=== PATIENT | female | born 1995 ===

== ENCOUNTER 2016-10-31 21:41 | Emergency (ER) | payer SELFPAY ==
[2016-10-31 21:54] VITALS: O2SAT 100
--- NOTE | 2016-10-31 22:28 | ED PDOC ---
Upper Extremity Pain/Injury Time Seen by Provider: 10/31/16 22:04 Chief Complaint (Nursing): Finger,Hand,&Wrist Chief Complaint (Provider): right hand pain History Per: Patient, Family History/Exam Limitations: no limitations Onset/Duration Of Symptoms: Days (1) Current Symptoms Are (Timing): Still Present Additional History Per: Patient Additional Complaint(s): 21 y/o right hand dominant female presents with right hand pain x 1 day. Patient states she punched a wall. Denies numbness/weakness right upper extremity. No medication taken for pain relief thus far. Past Medical History Reviewed: Historical Data, Nursing Documentation, Vital Signs Vital Signs: Last Vital Signs Temp 98.0 F 10/31/16 21:52 Pulse 91 H 10/31/16 21:52 Resp 16 10/31/16 21:52 BP 110/62 10/31/16 21:52 Pulse Ox 100 10/31/16 21:52 - Medical History PMH: No Chronic Diseases - Surgical History Surgical History: - Family History Family History: States: Unknown Family Hx - Home Medications Home Medications: Ambulatory Orders Medication Instructions Recorded Acetaminophen with Codeine 1 tab PO Q6 PRN #10 tab 10/31/16 [Tylenol with Codeine No. 3 300 mg-30 mg] - Allergies Allergies/Adverse Reactions: Allergies Allergy/AdvReac Type Severity Reaction Status Date / Time No Known Allergies Allergy Verified 10/31/16 21:51 Review of Systems ROS Statement: Except As Marked, All Systems Reviewed And Found Negative Musculoskeletal: Positive for: Hand Pain (right) Physical Exam - Reviewed Nursing Documentation Reviewed: Yes Vital Signs Reviewed: Yes - Physical Exam Appears: Positive for: Well, Non-toxic, No Acute Distress Head Exam: Positive for: ATRAUMATIC, NORMAL INSPECTION, NORMOCEPHALIC Skin: Positive for: Normal Color Cardiovascular/Chest: Positive for: Regular Rate, Rhythm Respiratory: Positive for: Normal Breath Sounds Pulses-Radial (L): 2+ Pulses-Radial (R): 2+ Extremity: Positive for: Swelling (dorsal right hand distal 4-5 metacarapals with + ecchymosis; tender to touch. Distal NV, motor intact) Neurologic/Psych: Positive for: Alert, Oriented. Negative for: Motor/Sensory Deficits - ECG O2 Sat by Pulse Oximetry: 100 - Other Rad xray right hand X-Ray: Viewed By Nh X-Ray Interpretation: +5th metacarpal head/neck fx - Progress ED Course And Treament: ibuprofen, xray Patient placed in right ulnar gutter splint by automotive brake technician; checked by literary writer. Cap refill <2 sec, distal digits NV intact post splint. Spling applied. Patient educated on findings, discharged with rx tylenol with codeine. Patient educated on risk of narcotic abuse/dependence/overdose; advised to take as needed for severe pain only. Otherwise ibuprofen Q6 PRN moderate pain. Advised ice, elevate. Follow up [facility]/hand specialist. Return to ED for worsening/concerning symptoms. Disposition - Clinical Impression Clinical Impression: Hand fracture, right - Patient ED Disposition Is Patient to be Admitted: No Counseled Patient/Family Regarding: Studies Performed, Diagnosis, Need For Followup, Rx Given - Disposition Referrals: [facility] [Outside] Mamadou Jones MD [Staff Provider] - Disposition: Routine/Home Disposition Time: 23:54 Condition: STABLE Prescriptions: Acetaminophen with Codeine [Tylenol with Codeine No. 3 300 mg-30 mg] 1 tab PO Q6 PRN #10 tab PRN Reason: Pain, Severe (8-10) Instructions: Boxer Fracture (ED), Splint Care (ED) Print Language: ITALIAN
[2016-11-01 00:43] VITALS: BP 104/59; PULSE 82; RESP 20; TEMP 98.7
--- NOTE | 2016-11-01 09:41 | RAD ---
PROCEDURE: Right Hand Radiographs. HISTORY: punched wall COMPARISON: None. FINDINGS: BONES: There is a comminuted fracture of the neck of the 5th metacarpal with ventral angulation JOINTS: Normal. No osteoarthritic changes. SOFT TISSUES: Normal. OTHER FINDINGS: None. IMPRESSION: There is a comminuted fracture of the neck of the 5th metacarpal with ventral angulation
== END 2016-11-01 01:04 | disposition home or self-care (01) ==
LOC: H.ER 21:41
DX: S62.91XA Unspecified fracture of right hand, initial encounter for closed fracture (principal); W22.8XXA Striking against or struck by other objects, initial encounter; Y92.89 Other specified places as the place of occurrence of the external cause

== ENCOUNTER 2016-11-03 21:10 | Emergency (ER) | payer SELFPAY ==
[2016-11-03 21:35] VITALS: BP 112/48; PULSE 66; RESP 16; TEMP 98.2; O2SAT 99
--- NOTE | 2016-11-03 21:59 | ED PDOC ---
Upper Extremity Pain/Injury Time Seen by Provider: 11/03/16 21:37 Chief Complaint (Nursing): Upper Extremity Problem/Injury Chief Complaint (Provider): Upper Extremity Problem/Injury History Per: Patient History/Exam Limitations: language barrier (metals sales representative used: [id number]) Onset/Duration Of Symptoms: Days (x2) Additional Complaint(s): Urbano More, 21 year old female presents to the ED after experiencing an injury to her right hand 2 days prior to arrival. The patient states she was told she has a fracture to her right hand which was then splinted. The patient was then given outpatient follow-up instructions, prompting her to visit the emergency room today as she is uncertain whether she should go to the clinic or wait until she goes back to [place] where she lives. The patient also removed the splint as it was uncomfortable. She reports the pain has improved. She denies new trauma, numbness, or tingling. Past Medical History Reviewed: Historical Data, Nursing Documentation, Vital Signs Vital Signs: Last Vital Signs Temp 98.2 F 11/03/16 21:33 Pulse 66 11/03/16 21:33 Resp 16 11/03/16 21:33 BP 112/48 L 11/03/16 21:33 Pulse Ox 99 11/03/16 21:33 - Medical History PMH: No Chronic Diseases - Surgical History Surgical History: - Family History Family History: States: Unknown Family Hx - Home Medications Home Medications: Ambulatory Orders Medication Instructions Recorded Acetaminophen with Codeine 1 tab PO Q6 PRN #10 tab 10/31/16 [Tylenol with Codeine No. 3 300 mg-30 mg] - Allergies Allergies/Adverse Reactions: Allergies Allergy/AdvReac Type Severity Reaction Status Date / Time No Known Allergies Allergy Verified 10/31/16 21:51 Review of Systems ROS Statement: Except As Marked, All Systems Reviewed And Found Negative Musculoskeletal: Positive for: Hand Pain (right hand injury) Neurological: Negative for: Numbness (and no tingling) Physical Exam - Reviewed Nursing Documentation Reviewed: Yes Vital Signs Reviewed: Yes - Physical Exam Appears: Positive for: Well, Non-toxic, No Acute Distress Head Exam: Positive for: ATRAUMATIC, NORMAL INSPECTION, NORMOCEPHALIC Skin: Positive for: Normal Color, Warm. Negative for: Rash Pulses-Radial (L): 2+ Pulses-Radial (R): 2+ Extremity: Positive for: Tenderness (minimal tenderness on dorsal right hand), Capillary Refill (< 2 seconds of R hand), Swelling (minimal non-circumferential swelling on dorsal right hand) Neurologic/Psych: Positive for: Alert, Oriented. Negative for: Motor/Sensory Deficits (of R hand) - ECG O2 Sat by Pulse Oximetry: 99 (RA) Pulse Ox Interpretation: Normal - Progress ED Course And Treament: Pt. was encouraged to see hand specialist CHRISSY but prefers to wait until she goes to [place]. Informed of risks of malunion of fx. These risks and importance of prompt hand specialist f/u and importance of keeping splint on were discussed using catalogue compiler #[id number]. Hand x-ray: minimally displaced distal 5th MCP fx unchanged from previous hand x -ray. Medical Decision Making Medical Decision Making: Impression: Right hand injury Plan: * Hand Right 3 Views [RAD] Stat * Reevaluation Scribe Attestation: Documented by Diana Blanc, acting as a scribe for Wes Whitlock PA-C. Provider Scribe Attestation: All medical record entries made by the Scribe were at my direction and personally dictated by me. I have reviewed the chart and agree that the record accurately reflects my personal performance of the history, physical exam, medical decision making, and the department course for this patient. I have also personally directed, reviewed, and agree with the discharge instructions and disposition. Procedures - Splinting Location: R hand Hand-Made Type: orthoglass Splint: orthoglass ulnar gutter splint Pre-Proc Neuro Vasc Exam: normal Post-Proc Neuro Vasc Exam: normal Progress: Pt. tolerated procedure well. Disposition - Clinical Impression Clinical Impression: Hand fracture - Patient ED Disposition Is Patient to be Admitted: No - Disposition Referrals: [facility] [Outside] [facility] [Outside] Mamadou Jones MD [Staff Provider] - Disposition: Routine/Home Disposition Time: 22:36 Condition: STABLE Instructions: Hand Fracture (ED), Splint Care (ED) Print Language: FRENCH
--- NOTE | 2016-11-04 08:21 | RAD ---
PROCEDURE: Right Wrist Radiographs. HISTORY: trauma COMPARISON: 10/1916 FINDINGS: BONES: No change in a distal left 5th metacarpal fracture with angulation. JOINTS: Normal. No dislocation. SOFT TISSUES: Normal. OTHER FINDINGS: None. IMPRESSION: No interval change in the left 5th metacarpal fracture.
== END 2016-11-03 23:07 | disposition home or self-care (01) ==
LOC: H.ER 21:10
DX: Z47.89 Encounter for other orthopedic aftercare (principal)